=== PATIENT | female | born 1980 | race Caucasian/White ===

== ENCOUNTER → 2020-11-09 11:51 | Outpatient (CLI) | payer OTHER, SELFPAY ==
--- NOTE | ~2020-11-09 | US_ITS ---
EXAMINATION: US pelvic complete EXAM DATE: 11/09/2020 12:26 INDICATION: Abnormal uterine bleeding. TECHNIQUE: Pelvic transabdominal sonogram was performed. There are multiple grayscale and Doppler im ages available for interpretation. There is no prior study for comparison. FINDINGS: Uterus measures 8.7 x 3.7 x 5.6 cm, with an anterior fibroid measuring 3.9 x 2.9 x 3.9 cm. Endometrial stripe measures 10 mm, within normal limits. There is no free pelvic fluid. Right adnexa: The ovary measures 4.2 x 2.5 x 3.7 cm and is morphologically normal. Ovarian vascular f low confirmed. Left adnexa: The ovary measures 2.8 x 2.9 x 3.7 cm and is morphologically normal. Ovarian vascular fl ow confirmed. IMPRESSION: 1. Fibroid. Reviewed, dictated and finalized at location B. TES GRINDER IMPRESSION: 1. Fibroid.
--- NOTE | ~2020-11-09 | MM_ITS ---
EXAMINATION: MM screening [place] BI w jalen HISTORY: Screening mammogram TECHNIQUE: Craniocaudal and mediolateral oblique 3-D tomosynthesis images were obtained and synthetic 2-D images were generated. CAD analysis was submitted and interpreted. COMPARISON: No prior mammogram is available for comparison at this institution. BREAST PARENCHYMAL COMPOSITION: The breasts are heterogeneously dense, which may obscure small masses . FINDINGS: There is no evidence of suspicious mass, calcification, or architectural distortion to sugg est malignancy in either breast. IMPRESSION: 1. No mammographic evidence of malignancy. 2. Recommend routine screening mammography in one year. BI-RADS Category 1: Negative Reviewed, dictated and finalized at location A. LPN
== END ==
PROVIDERS: Visit Provider Nurse Practitioner
DX: Z12.31 Encounter for screening mammogram for malignant neoplasm of breast (principal); N93.8 Other specified abnormal uterine and vaginal bleeding; N92.0 Excessive and frequent menstruation with regular cycle; D25.9 Leiomyoma of uterus, unspecified
CPT/HCPCS: 76856; 77063; 77067

== ENCOUNTER → 2020-11-19 00:10 | Outpatient (CLI) | payer OTHER, SELFPAY ==
[2020-11-19 18:19] LABS: SARS-CoV-2 RNA PCR Negative
== END ==
PROVIDERS: Visit Provider Obstetrics & Gynecology Gynecology
DX: Z01.812 Encounter for preprocedural laboratory examination (principal); Z20.822 Contact with and (suspected) exposure to COVID-19
CPT/HCPCS: C9803; U0003; U0005

== ENCOUNTER 2020-11-22 01:17 | Day surgery (SDC) | payer OTHER, SELFPAY ==
[2020-11-18 16:53] VITALS: BMI 20.2
--- NOTE | 2020-11-22 08:33 | WPDHPUPDATE1 ---
History and Physical Update Update Date/Time: 11/22/20 08:33 History and Physical has been reviewed, including an updated exam of the patient. There are NO changes in the patient's condition. Risks, benefits, and alternatives have been discussed and questions answered. Patient agrees to proceed with procedure.
--- NOTE | 2020-11-22 08:33 | PM.HPGS ---
History of Present Illness History of Present Illness Consent: Risks, benefits, and alternatives have been discussed and questions answered. Patient agrees to proceed with procedure. Chief complaint: Menorrhagia, Fibroids Narrative: Zoe Larkin is a 39 year old female with heavy, regular cycles. U/s done and showed a 4 cm fibroid but does not delineate if it is submucosal. Recommend to further evaluate with hysteroscopy and D&C in OR and if submucosal to remove the fibroid with myosure. Risks of infection, bleeding, perforation, and fluid imbalance. Possible pathology also discussed. Agrees to proceed. Review of Systems Review of Systems: Narrative: not repeated day of surgery; patient states no changes in status [facility] Surgical History Surgical History History of Social History Social History Smoking status: Former smoker Tobacco type: cigarettes Additional smoking assessment comments: 15 YRS 1/2 PPD Alcohol intake: current Drinks per week: 12 Living arrangements: with family Meds Home Medications and Allergies Home Medications Medication Instructions Recorded Confirmed Type No Home Medications 11/18/20 11/22/20 History Allergies Allergy/AdvReac Type Severity Reaction Status Date / Time No Known Allergies Allergy Unknown Unverified 11/22/20 09:15 Exam Const: General: healthy appearing and alert Orientation/consciousness: patient oriented x3 Resp: Effort & Inspection: normal respiratory effort Auscultation: clear to auscultation bilaterally Cardio: Rate: regular rate Rhythm: regular rhythm GI: GI Palp: Yes Soft to palpation, No Tenderness to palpation present (GI) and No Palpable mass present : External Female Exam: normal external appearance Speculum Exam - Vagina: normal appearance of the vagina and normal vaginal discharge Speculum Exam - Cervix: normal appearance of the cervix Bimanual exam- vagina & uterus: uterine size normal and consistency normal Bimanual Exam- Adnexa, other: normal adnexae and No adnexal tenderness Neuro: General: patient oriented x3 Assessment and Plan Assessment and plan (1) Menorrhagia: Code(s): N92.0 - Excessive and frequent menstruation with regular cycle Status: Acute Assessment and Plan: Plan to proceed with hysteroscopy and D&C with possible myosure
--- NOTE | 2020-11-22 09:12 | WPDANESEPPF ---
Anes - Initial Pre Proc Eval Procedure: Operation Date: 11/22/20 11:00 Proposed Procedures p Hysteroscopy Dilation And Curettage With Myosure - Anjelica Oliver MD Date/Time: 11/22/20 09:12 Surgeon: Anjelica Oliver MD Pre Op Diagnosis: Menorrhagia, Fibroids Patient Data Age: 39 Gender: F Height: 5 ft 6 in Weight: 57 kg Allergies Allergy/AdvReac Type Severity Reaction Status Date / Time No Known Allergies Allergy Unknown Unverified 11/22/20 09:11 Home Medications Medication Instructions Recorded Confirmed Type No Home Medications 11/18/20 11/22/20 History Patient hx anesthesia problems: none Family hx anesthesia problems: none [facility] Surgical History Surgical History History of Social History Social History Smoking status: Former smoker Tobacco type: cigarettes Additional smoking assessment comments: 15 YRS 1/2 PPD Alcohol intake: current Drinks per week: 12 Living arrangements: with family Anes - Eval Final PreProcedure Day of Procedure 11/22/20 09:12 Patient weight: normal Heart: regular rate and rhythm Lungs: clear to auscultation Airway: Mallampati scale class II Neurological: alert and oriented Last oral intake: >/= 8 hours ASA classification: II Emergent: no Anesthetic plan: proceed Anesthesia type and monitoring: general GIVS and standard monitoring Informed Consent: The patient's anesthetic plan and its attendant risks and benefits were discussed with the patient/family/POA. Questions were solicited and answers provided to the satisfaction of the patient/family/POA.
[2020-11-22] MEDS: ACETAMINOPHEN 500 MG TABLET 1000 MG PO (09:16)
[2020-11-22] MEDS: LACTATED RINGERS 1,000 ML 30 ML IV CONT (09:17)
[2020-11-22 09:21] VITALS: BP 143/89; PULSE 66; RESP 20; TEMP 37.3; O2SAT 100
--- NOTE | 2020-11-22 10:12 | PM.PROC ---
Procedure Note - Detailed Date of procedure: 11/22/20 Pre-op diagnosis: Menorrhagia, Fibroids Post-op diagnosis: same Procedure performed: hysteroscopy, D&C, myosure resection of fibroid Description of procedure: The patient was taken to the operating room and placed under anesthesia in the dorsal lithotomy position. She was prepped and draped in the usual sterile fashion. [place] speculum was placed in the vagina and the cervix grasped on the anterior lip with a tenaculum. Cervix is injected with 1% lidocaine. The uterus is sounded to 8cm. The hysteroscope was placed with the stated findings. The MyoSure device is opened in placed and the fibroid is removed under direct visualization using the MyoSure. The hysteroscope and MyoSure were removed with the sharp curette is used to sharply curette the endometrium until a good uterine cry is noted in all areas. All instruments are removed. Sponge, instrument, and needle counts are correct per the OR staff. Anesthesia: MAC and local Surgeon: Anjelica Oliver MD Estimated blood loss (mL): 10 Drains: No Packing: No Pathology: yes (endometrial shavings and curettings) Complications: No immediate complications Condition: stable Disposition: PACU Findings: uterus 8 cm; large anterior sessile fibroid
[2020-11-22 10:13] VITALS: BP 118/68; PULSE 56; RESP 12; O2SAT 100
[2020-11-22 10:45] VITALS: BP 117/73; PULSE 56; RESP 14
--- NOTE | 2020-11-22 11:58 | SUR.PHASEII ---
1100; PT AWAKE AND ALERT. SPOUSE AT BEDSIDE. DENIES PAIN OR NAUSEA. STATES READY TO GO HOME.
== END 2020-11-22 11:10 | disposition home or self-care (01) ==
PROVIDERS: Visit Provider Obstetrics & Gynecology Gynecology
PROC: 0U5B8ZZ Destruction of Endometrium, Via Natural or Artificial Opening Endoscopic (ICD-10-PCS; CPT 58563; principal; 2020-11-22 11:00)
DX: N92.0 Excessive and frequent menstruation with regular cycle (principal); N84.0 Polyp of corpus uteri; Z87.891 Personal history of nicotine dependence
CPT/HCPCS: 58558; 88305; A9270; C9803; J1100; J1885; J2250; J2405; J2704; J3010; J7030; J7120; U0003; U0005

== ENCOUNTER 2024-03-17 00:45 | Day surgery (SDC) | payer OTHER, SELFPAY ==
[2024-03-04 11:21] VITALS: BMI 20.6
[2024-03-17 08:40] VITALS: BP 164/87; PULSE 62; RESP 18; TEMP 36.3; O2SAT 100; BMI 20.5
--- NOTE | 2024-03-17 08:50 | WPDANESEPPF ---
Anes - Initial Pre Proc Eval Procedure: Operation Date: 03/17/24 10:00 Proposed Procedures p Screening Colonoscopy - Sourav Roberts MD Date/Time: 03/17/24 08:50 Surgeon: Sourav Roberts MD Pre Op Diagnosis: neoplasm screening Patient Data Age: 43 Gender: F Height: 1.68 m Weight: 58 kg Allergies Allergy/AdvReac Type Severity Reaction Status Date / Time No Known Allergies Allergy Unknown Verified 03/17/24 08:47 Home Medications Medication Instructions Recorded Confirmed Type No Home Medications 11/18/20 03/17/24 History Patient hx anesthesia problems: none Family hx anesthesia problems: none Results Review: All pre-operative results and documents have been reviewed as part of the pre-operative evaluation. [facility] Surgical History Surgical History History of Social History Social History Smoking status: Never smoker Tobacco type: cigarettes Additional smoking assessment comments: 15 YRS 1/2 PPD Alcohol intake: current Drinks per week: 15 Substance use type: does not use Living arrangements: other Additional living arrangements comments: with sp Anes - Eval Final PreProcedure Day of Procedure 03/17/24 08:50 Patient weight: normal Heart: regular rate and rhythm Lungs: clear to auscultation Airway: Mallampati scale Neurological: alert and oriented Last oral intake: >/= 8 hours ASA classification: I Emergent: no Anesthetic plan: proceed Anesthesia type and monitoring: general GIVS and standard monitoring Results Review: All pre-operative results and documents have been reviewed as part of the pre-operative evaluation. Informed Consent: The patient's anesthetic plan and its attendant risks and benefits were discussed with the patient/family/POA. Questions were solicited and answers provided to the satisfaction of the patient/family/POA.
[2024-03-17] MEDS: LACTATED RINGERS 1,000 ML 150 ML IV CONT (09:05)
--- NOTE | 2024-03-17 09:49 | PM.HPGS ---
History of Present Illness History of Present Illness Consent: Risks, benefits, and alternatives have been discussed and questions answered. Patient agrees to proceed with procedure. Chief complaint: neoplasm screening Narrative: Zoe Larkin is a 43 year old female here for first screening colonoscopy Review of Systems Review of Systems: All systems reviewed & are unremarkable except as noted in HPI and below PMFSH Past Medical History Medical History (Updated 03/17/24 @ 09:49 by Sourav Roberts MD) Colon cancer screening Surgical History Surgical History History of Social History Social History Smoking status: Never smoker Tobacco type: cigarettes Additional smoking assessment comments: 15 YRS 1/2 PPD Alcohol intake: current Drinks per week: 15 Substance use type: does not use Living arrangements: other Additional living arrangements comments: with sp Meds Home Medications and Allergies Home Medications Medication Instructions Recorded Confirmed Type No Home Medications 11/18/20 03/17/24 History Allergies Allergy/AdvReac Type Severity Reaction Status Date / Time No Known Allergies Allergy Unknown Verified 03/17/24 08:47 Vital Signs Vital Signs - 24 hr 03/17/24 08:40 Temperature 97.4 F L Pulse Rate 62 Respiratory Rate 18 Blood Pressure 164/87 H Pulse Oximetry 100 Oxygen Delivery Room Air Exam Const: General: comfortable and no acute distress HENMT: Face/Nose/Sinus: Normal nares present Eyes: General: appearance normal, both eyes and all related structures Neck: Neck: no JVD Resp: Auscultation: clear to auscultation bilaterally Cardio: Rate: regular rate Rhythm: regular rhythm GI: Inspection: non-distended GI Palp: Yes Soft to palpation Skin: General skin exam: normal color Neuro: General: gait normal Speech: normal speech Extrem: General: normal to inspection Psych: Mental Status: mental status grossly normal Assessment and Plan Assessment and plan (1) Colon cancer screening: Code(s): Z12.11 - Encounter for screening for malignant neoplasm of colon Status: Acute Assessment and Plan: colonoscopy
[2024-03-17 10:07] VITALS: BP 112/63; PULSE 54; RESP 20; O2SAT 100
[2024-03-17 10:17] VITALS: BP 143/84; PULSE 63; RESP 20; O2SAT 100
[2024-03-17 10:27] VITALS: BP 167/85; PULSE 67; RESP 19; O2SAT 100
== END 2024-03-17 10:34 | disposition home or self-care (01) ==
PROVIDERS: PCP Nurse Practitioner; Visit Provider Internal Medicine Gastroenterology
PROC: 0DJD8ZZ Inspection of Lower Intestinal Tract, Via Natural or Artificial Opening Endoscopic (ICD-10-PCS; CPT 45378; principal; 2024-03-17 10:00)
DX: Z12.11 Encounter for screening for malignant neoplasm of colon (principal); K64.8 Other hemorrhoids; Z87.891 Personal history of nicotine dependence
CPT/HCPCS: 45378; J2704; J7120

== ENCOUNTER 2024-04-28 15:05 | Outpatient (CLI) | payer OTHER, SELFPAY ==
--- NOTE | ~2024-04-28 | MM_ITS ---
EXAMINATION: MM screening [place] BI w jalen HISTORY: Screening TECHNIQUE: Craniocaudal and mediolateral oblique 3-D tomosynthesis images were obtained and synthetic 2-D images were generated. CAD analysis was submitted and interpreted. COMPARISON: 11/09/2020 BREAST PARENCHYMAL COMPOSITION: Dense: The breasts are heterogeneously dense, which may obscure small masses FINDINGS: There is no evidence of suspicious mass, calcification, or architectural distortion to sugg est malignancy in either breast. There has been no suspicious interval change. IMPRESSION: 1. No mammographic evidence of malignancy. 2. Recommend routine screening mammography in one year. BI-RADS Category 1: Negative Reviewed, dictated and finalized at location B.
== END 2024-04-28 15:06 ==
PROVIDERS: PCP Nurse Practitioner; Visit Provider Nurse Practitioner
DX: Z12.31 Encounter for screening mammogram for malignant neoplasm of breast (principal)
CPT/HCPCS: 77063; 77067

== ENCOUNTER 2025-05-06 15:31 | Outpatient (CLI) | payer OTHER, SELFPAY ==
--- NOTE | ~2025-05-06 | MM_ITS ---
EXAMINATION: MM screening [place] BI w jalen HISTORY: Screening TECHNIQUE: Craniocaudal and mediolateral oblique 3-D tomosynthesis images were obtained and synthetic 2-D images were generated. CAD analysis was submitted and interpreted. COMPARISON: Comparison to multiple prior studies sequentially, with oldest reviewed study dated 11/2020. BREAST PARENCHYMAL COMPOSITION: Dense: The breasts are extremely dense, which lowers the sensitivity of mammography. FINDINGS: There is no evidence of suspicious mass, calcification, or architectural distortion to sugg est malignancy in either breast. There has been no suspicious interval change. IMPRESSION: 1. No mammographic evidence of malignancy. 2. Recommend routine screening mammography in one year. BI-RADS Category 1: Negative Reviewed, dictated and finalized at location B.
== END 2025-05-06 15:32 | disposition home or self-care (01) ==
LOC: MICIMG 15:32
PROVIDERS: PCP Nurse Practitioner; Visit Provider Obstetrics & Gynecology Gynecology
DX: Z12.31 Encounter for screening mammogram for malignant neoplasm of breast (principal)
CPT/HCPCS: 77063; 77067